=== PATIENT | female | born 1950 | race Caucasian/White ===

== ENCOUNTER → 2017-10-21 | Outpatient (CLI) | payer OTHER ==
[2017-10-23 14:24] LABS: MICROSOMAL AB 3 IU/ML (<9)
== END | disposition home or self-care (01) ==
LOC: C.LAB1850 13:11
PROVIDERS: ATTEND Internal Medicine Endocrinology, Diabetes & Metabolism
DX: M79.1 Myalgia (principal); E03.9 Hypothyroidism, unspecified; R53.83 Other fatigue

== ENCOUNTER 2018-08-31 06:16 | Inpatient (IN) ==
--- NOTE | 2018-08-05 12:48 | PAT Medication Instructions ---
Medication Instructions Date of Service August 05, 2018 Home Medications acetaminophen 1,000 mg PO Q6H NEEDED alprazolam [Xanax] 0.25 mg PO HS aspirin 81 mg PO QAM atorvastatin 10 mg PO QPM cholecalciferol (vitamin D3) 1,000 unit PO QAM cyanocobalamin (vitamin B-12) 100 mcg PO QAM diltiazem HCl 120 mg PO HS duloxetine 30 mg PO QAM duloxetine [Cymbalta] 60 mg PO QAM etodolac 500 mg PO BID gabapentin 300 mg PO QPM levothyroxine 100 mcg PO QAM loperamide [Imodium A-D] 2 mg PO Q3H NEEDED pantoprazole 40 mg PO QAM tramadol 1 - 2 tab PO Q8H NEEDED ASK your surgeon for instructions etodolac 500 mg PO BID ASK your prescriber and surgeon aspirin 81 mg PO QAM DO NOT take the morning of surgery cholecalciferol (vitamin D3) 1,000 unit PO QAM cyanocobalamin (vitamin B-12) 100 mcg PO QAM Take morning of surgery With a small sip of water, OTHERWISE NOTHING TO EAT OR DRINK AFTER MIDNIGHT: acetaminophen 1,000 mg PO Q6H NEEDED duloxetine 30 mg PO QAM duloxetine [Cymbalta] 60 mg PO QAM levothyroxine 100 mcg PO QAM pantoprazole 40 mg PO QAM tramadol 1 - 2 tab PO Q8H NEEDED (stop 4 hours before surgery) loperamide [Imodium A-D] 2 mg PO Q3H NEEDED Take evening before surgery acetaminophen 1,000 mg PO Q6H NEEDED alprazolam [Xanax] 0.25 mg PO HS atorvastatin 10 mg PO QPM diltiazem HCl 120 mg PO HS gabapentin 300 mg PO QPM tramadol 1 - 2 tab PO Q8H NEEDED loperamide [Imodium A-D] 2 mg PO Q3H NEEDED Other Notes If you have any questions please call us at [phone] or [phone] or [phone] or [phone]
--- NOTE | 2018-08-05 13:47 | Anesthesiology Consultation ---
Date of Service August 05, 2018 Assessment & Plan (1) Encounter for pre-operative examination: Chart Review Chart Review: Acceptable Risk for Surgery and Patient seen in Pre Admission Testing Consults Requested none Teaching & Discussion Pre-Anesthesia Teaching/Discussion Notes: Instructed NPO after midnight before surgery, except medications with 15 cc of water. Medication instructions provided according to the PAT guidelines. History Surgery Operation Date: 08/31/18 07:00 Proposed Procedures p Left Total Hip Arthroplasty - Olegario Nugent MD Height/Weight Height: 6 ft Weight: 102.2 kg Allergies Allergy/AdvReac Type Severity Reaction Status Date / Time No Known Allergies Allergy Verified 07/30/18 13:58 Medications Home Medications Medication Instructions Recorded Confirmed Last Taken acetaminophen 1,000 mg PO Q6H PRN 07/30/18 07/30/18 Unknown alprazolam [Xanax] 0.25 mg PO HS 07/30/18 07/30/18 Unknown aspirin 81 mg PO QAM 07/30/18 07/30/18 Unknown atorvastatin 10 mg PO QPM 07/30/18 07/30/18 Unknown cholecalciferol (vitamin D3) 1,000 unit PO QAM 07/30/18 07/30/18 Unknown [Vitamin D3] cyanocobalamin (vitamin B-12) 100 mcg PO QAM 07/30/18 07/30/18 Unknown [Vitamin B-12] diltiazem HCl 120 mg PO HS 07/30/18 07/30/18 Unknown duloxetine 30 mg PO QAM 07/30/18 07/30/18 Unknown duloxetine [Cymbalta] 60 mg PO QAM 07/30/18 07/30/18 Unknown etodolac 500 mg PO BID 07/30/18 07/30/18 Unknown gabapentin 300 mg PO QPM 07/30/18 07/30/18 Unknown levothyroxine 100 mcg PO QAM 07/30/18 07/30/18 Unknown loperamide [Imodium A-D] 2 mg PO Q3H PRN 07/30/18 07/30/18 Unknown pantoprazole 40 mg PO QAM 07/30/18 07/30/18 Unknown tramadol 1 - 2 tab PO Q8H PRN 07/30/18 07/30/18 Unknown Past Medical History Medical History Anxiety Chronic back pain Degenerative disc disease Depression GERD (gastroesophageal reflux disease) Hyperlipidemia Hypoglycemia Hypothyroidism Osteoarthritis PVC (premature ventricular contraction) Scoliosis Spinal stenosis Past Surgical History Surgical History History of cataract surgery LEFT History of detached retina repair LEFT History of esophageal dilatation 1975 History of esophagogastroduodenoscopy (EGD) History of surgery on arm LEFT; A CHILD History of tooth extraction History of total hip arthroplasty RT History of total shoulder replacement BL Past Anesthesia History No Hx of Anesthesia Complications and No Family Hx of Anesthesia Complications History of PONV No Motion Sickness Screening History of Motion Sickness: No Social History Smoking Status: Former smoker Smoking cigarettes per day: Smoked ~1ppd x 10 years Do You Dip or Chew Tobacco: No Smoking End Date: QUIT 1976 Hx Alcohol Use: No Hx Substance Use: No substance use type: does not use Exercise / Class Metabolic Activity III < 4 Walking/Shop/Light housework (Very limited due to hip/knee pain. Not able to do stairs currently due to pain. Denies CP. Does complain of SOB when the pain gets bad. ) Review of Systems Patient denies chest pain, reflux, cough, wheezing, palpitations. +SOB/BAKER (when pain is bad) +joint pain (left hip and knee) Physical Exam Vital Signs BP: 114/77 P: 70 R: 16 T: 98.6 SPO2: 97% on RA ENMT Thyromental Distance: < 3.5 Finger Breadths (3) Mallampati Class: II Neck normal visual inspection and trachea midline; neck extension not limited Respiratory normal respiratory effort Auscultation: lungs clear to auscultation bilaterally Cardiovascular Rate/Rhythm: regular rate and regular rhythm Heart Sounds: no murmur Vessels: no carotid bruit Psychiatric Orientation: alert and oriented x 3 Testing Electrocardiogram Date: 11/24/17 Findings: + NSR @ (67) High QRS voltage may be normal variant or due LVE. Nonspecific ST abnormality. When compared with ECG of 03/27/17, PVCs are no longer present. Chest X-Ray Date: 08/05/18 Findings: + NAD FINDINGS: No pneumothorax. No pleural effusions. The lungs are clear. The heart is normal in size. Old, healed left fifth rib fracture. Bilateral total shoulder arthroplasties are noted. Dilated gas and fluid-filled structure within the mediastinum. A left gastric bubble was not identified. Therefore, this favors a gastric pull-up rather than a distended esophagus. IMPRESSION: 1. No acute process within the chest. 2. Dilated gas and fluid-filled structure within the mediastinum. A left gastric bubble was not identified. Therefore, this favors a gastric pull-up rather than a distended esophagus. Clinical correlation recommended. If there is no postoperative history, then a follow-up upper GI series is recommended for further evaluation. Echocardiogram Date: 11/20/16 EF: 64% LV Function: normal RWMA: + none Valvular Disease: + no significant valvular disease Mild aortic valve sclerosis, without stenosis, is present. Mild tricuspid regurgitation is present. Stress Test Date: 04/20/17 Type: nuclear Resting EF: >70% Resting EKG: Sinus bradycardia; PVC's Stress EKG: NSR; No significant ST segment changes noted at peak. Stress: Normal BP and HR. Post stress perfusion is normal. Conclusion: Stress test is negative for ischemia. Laboratory Results 08/05/18 14:05 08/05/18 14:05 Blood Type A Negative 08/05/18 14:05 Antibody Screen NEGATIVE 08/05/18 14:05 PT 10.5 Seconds (9.0-12.0) 08/05/18 14:05 INR 1.0 (0.9-1.1) 08/05/18 14:05 APTT 27.7 Seconds (21.0-31.0) 08/05/18 14:05
[2018-08-05 14:39] LABS: Basophils # (auto) 0.03 K/uL (0-0.2); Basophils % (auto) 0.8 %; Eosinophils # (auto) 0.06 K/uL (0-0.5); Eosinophils % (auto) 1.7 %; Hematocrit (blood only) 40.5 % (37-47); Hemoglobin 13.3 g/dL (12.0-16.0); Immature Granulocytes # (auto) 0.01 K/uL (0.00-0.02); Immature Granulocytes % (auto) 0.3 %; Lymphocytes # (auto) 0.66 K/uL (1.2-3.4); Lymphocytes % (auto) 18.2 %; Mean Corpuscular Hgb Conc 32.8 g/dL (32-36); Mean Platelet Volume 10.8 fL (7.4-10.4); Monocytes % (auto) 13.8 %; Neutrophils # (auto) 2.37 K/uL (1.4-6.5); Neutrophils % (auto) 65.2 %; Platelet Count 149 K/uL (130-400); RDW Standard Deviation 50.5 fL (36.4-46.3); Red Blood Count 4.09 M/uL (4.2-5.4); White Blood Count 3.63 K/uL (4.8-10.8)
--- NOTE | 2018-08-05 14:50 | XRay Report ---
XR chest Pre-admission PA/Lat HISTORY: Preop. COMPARISON: None. FINDINGS: No pneumothorax. No pleural effusions. The lungs are clear. The heart is normal in size. Ol d, healed left fifth rib fracture. Bilateral total shoulder arthroplasties are noted. Dilated gas and fluid-filled structure within the mediastinum. A left gastric bubble was not identified. Therefore, this favors a gastric pull-up rather than a distended esophagus. IMPRESSION: 1. No acute process within the chest. 2. Dilated gas and fluid-filled structure within the mediastinum. A left gastric bubble was not ident ified. Therefore, this favors a gastric pull-up rather than a distended esophagus. Clinical correlati on recommended. If there is no postoperative history, then a follow-up upper GI series is recommended for further evaluation. Electronically signed by: Indra Medrano M.D. 08/05/2018 2:48 PM
[2018-08-05 14:51] LABS: Partial Thromboplastin Ratio 1.1; Partial Thromboplastin Time 27.7 Seconds (21.0-31.0); Prothrombin Time 10.5 Seconds (9.0-12.0)
[2018-08-05 15:25] LABS: BUN Creatinine Ratio 29.4 (10-20); Creatinine Clr Calc Pharmacy 98.7 ml/min; Est GFR (African American) 98.1; Est GFR (Non-African American) 84.6; Potassium 4.1 mmol/L (3.5-5.1)
--- NOTE | 2018-08-28 12:34 | History and Physical Report ---
DATE OF ADMISSION: 08/31/2018 CHIEF COMPLAINT: Left hip pain and discomfort. HISTORY OF PRESENT ILLNESS: The patient is a 68-year-old female who presents for surgical treatment of her left hip. She has about a 2-year history of increasing left pain and discomfort that has gotten to the point where she is using a cane and even a walker to get around for the past 6 months. She does have a history of right hip replacement done by Dr. Shields about 4 years ago. She actually went back to see him, but he told her he was retiring and she is to go elsewhere. She is disabled by the pain. She describes the groin pain and knee pain. She limps with every step. She cannot really walk independently due to the pain. She is taking anti-inflammatories without much relief. She has been to pain clinic as well without any relief. She would now like to present for surgical treatment. PAST MEDICAL HISTORY: 1. PVCs. 2. Hypothyroidism. 3. Gastroesophageal reflux disease. 4. Elevated cholesterol. 5. Low back pain/sciatica. PAST SURGICAL HISTORY: Previous surgeries include: 1. Right shoulder surgery. 2. Left shoulder surgery. 3. Esophageal surgery. 4. Right hip replacement done [address] Shields. ALLERGIES: None. CURRENT MEDICINES: Include: 1. Hydrocodone/Tylenol 1 tablet 3 times a day for pain. 2. Cymbalta 30 mg. 3. Alprazolam 0.25 mg as needed. 4. Atorvastatin 10 mg a day. 5. Pantoprazole 40 mg a day. 6. Diltiazem CD 120 mg once a day. 7. Gabapentin 300 mg before bedtime. 8. Etodolac 1 tablet twice a day. 9. Duloxetine 60 mg a day. 10. Tylenol. 11. Levothyroxine 88 mcg a day. 12. Vitamin B12. 13. Aspirin 81 mg. 14. Vitamin D. 15. Loperamide 2 mg as needed for diarrhea. SOCIAL HISTORY: A 67-year-old white female. She is single. Lives by herself, but has some family lives close by. Does not drink. No significant smoking history. FAMILY HISTORY: Significant for heart disease and COPD. REVIEW OF SYSTEMS: Significant for arthritis. She denies any chest pain or shortness of breath. No history of DVT or PE. No known bleeding problems. PHYSICAL EXAMINATION: GENERAL: Reveals a pleasant elderly female. Looks to be in pretty good health. HEENT: Benign. NECK: Supple. No lymphadenopathy. LUNGS: Clear to auscultation. HEART: Regular rate and rhythm. ABDOMEN: Soft, nontender, nondistended. EXTREMITIES: Grossly neurovascularly intact except as follows: Examination of the left hip reveals the patient walks using a walker. She really cannot even walk independently. She walks with a significantly antalgic gait. She is about a centimeter short on the left side compared to the right. She has pain and stiffness with any type of hip motion. She has got valgus alignment to her knee. Minimal knee effusion. X-RAYS: X-rays of the left hip revealed advanced left hip DJD. It looks to be inflammatory in nature with diffuse osteopenia. She does have a right hip replacement in place. She has complete loss of the joint space. X-rays of the left knee revealed fairly advanced lateral compartment DJD. ASSESSMENT: A 68-year-old white female with advanced left hip arthritis. She has some moderate knee arthritis as well, but I think it is limiting her most. She has failed conservative treatment and would like to have her left hip replaced. PLAN: We are going to take her to the operating room and do a left total hip replacement. The risks and benefits of this procedure were explained to the patient including but not limited to DVT, PE, , infection, neurological injury, neurovascular, bleeding problem, pain, limited range of motion, stiffness, failure to relieve symptoms, incomplete relief of symptoms, fracture, leg length inequality, nerve palsy, etc. The patient understands and desires. Informed consent was obtained. The patient does have some degree of scoliosis and pelvic obliquity which are making the leg lengths equal a little bit difficult. I told her we do the best we could. The patient lives by herself, but has family lives close by. She is hoping to be discharged to home with home health. She [facility] to a [facility] facility [facility] time, but did not really feel it was necessary.
[~2018-08-31 06:16] MED LIST: ACETAMINOPHEN 500 MG TAB PO SCH; CEFAZOLIN 2000MG 2,000 MG/15 ML SYR IV SCH; FAMOTIDINE 20 MG TAB PO SCH; GABAPENTIN 300 MG PO SCH; LR 60ML/HR IV SCH; METOCLOPRAMIDE HCL 10 MG TABLET PO SCH; SCOPOLAMINE 1.5 MG TDSY TD SCH; TRANEXAMIC ACID 1,000 MG **IV Pre-op IV SCH
[2018-08-31] MEDS ORDERED: BUPIVACAINE 0.5 % 5 MG/1 ML PF 10ML VIAL ONE (06:23)
--- NOTE | 2018-08-31 06:51 | History & Physical Bridge Note ---
Date of Service August 31, 2018 History & Physical Bridge Note I have examined the patient, reviewed the History & Physical and in the interval since the performance of the History & Physical I have noted the following changes of clinical significance: no changes noted
[2018-08-31] MEDS: LR 500ML BOLUS, THEN 15ML/HR IV SCH ×3 (06:53→12:14)
[2018-08-31] MEDS ORDERED: PROPOFOL IV EMULSION 10 MG/ML 20 ML VIAL IV ONE (08:14)
[2018-08-31] MEDS ORDERED: LIDOCAINE HCL 2% 2 ML VIAL/AMP(20MG/ML) INFIL ONE (08:14)
[2018-08-31] MEDS ORDERED: MIDAZOLAM HCL 1 MG/ML 2ML VIAL ONE (08:15)
[2018-08-31] MEDS ORDERED: fentaNYL citrate 100 MCG/2 ML VIAL ONE (08:15)
[2018-08-31] MEDS ORDERED: BUPIVACAINE/EPINEPHRINE 0.5% MPF 1:200,000 30 ML VIAL ONE (08:42)
[2018-08-31] MEDS ORDERED: BACITRACIN INJ 50,000 UNIT VIAL ONE (08:42)
[2018-08-31] MEDS ORDERED: MoRPHine SULFATE PF 1 MG/ML 10 ML AMP/VIAL ONE (08:52)
[2018-08-31] MEDS ORDERED: MoRPHine SULFATE PF 1 MG/ML 10 ML AMP/VIAL INT SPINAL ONE (09:06)
[2018-08-31] MEDS ORDERED: NALBUPHINE HCL INJ 10 MG/ML AMP IV PRN (09:06)
[2018-08-31] MEDS ORDERED: NALOXONE HCL 1 MG in SODIUM CHLORIDE 0.9% 1000ML 1,000 ML IV PRN (09:06)
[2018-08-31] MEDS ORDERED: LACTATED RINGER'S 500 ML IV PRN (09:06)
[2018-08-31] MEDS ORDERED: NALOXONE HCL 0.4 MG/1 ML VIAL/CARP IV PRN (09:06)
[2018-08-31] MEDS ORDERED: ePHEDrine sulfate 50 MG/ML AMP IV PRN (09:06)
[2018-08-31] MEDS ORDERED: NALOXONE HCL 0.08 MG in SYRINGE 1.8 ML IV PRN (09:06)
[2018-08-31] MEDS ORDERED: DiphenhydrAMINE HCL 50 MG/ML VIAL IV PRN (09:06)
[2018-08-31] MEDS ORDERED: NO NARCOTICS OR SEDATIVES SCH (09:15)
[2018-08-31] MEDS ORDERED: DC INTRASPINAL MORPHINE SCH (09:15)
[2018-08-31] MEDS ORDERED: SODIUM CHLORIDE 0.9% 1000ML 1,000 ML IV SCH (09:15)
[2018-08-31] MEDS ORDERED: KETOROLAC 30 MG/ML VIAL IV PRN (09:24)
[2018-08-31] MEDS ORDERED: MoRPHine SULFATE 4 MG/ML 1 ML CARP\\VIAL IV PRN (09:24)
[2018-08-31] MEDS ORDERED: MEPERIDINE HCL 25 MG/ML CARP IV PRN (09:24)
[2018-08-31] MEDS ORDERED: HYDROmorphone INJ 0.5 MG/0.5 ML SYR IV PRN (09:24)
[2018-08-31] MEDS ORDERED: ONDANSETRON INJ 2 MG/ML 2 ML VIAL IV PRN (09:24)
[2018-08-31] MEDS ORDERED: PHENYLEPHRINE 100MCG/ML 5ML SYR ONE (10:09)
[2018-08-31] MEDS ORDERED: ePHEDrine sulfate 50 MG/ML SYR ONE (10:09)
--- NOTE | 2018-08-31 10:46 | Post Operative Brief Note ---
Immediate Post Op Note v1 Date of Surgery August 31, 2018 Pre & Post Diagnosis Operation Date: 08/31/18 08:50 Left Hip DJD Procedure Operation Date: 08/31/18 08:50 Left Hip Arthroplasty - Uncemented. Surgeon Olegario Nugent MD Store Receiver Neel, PAC Estimated Blood Loss 300 Findings Consistent with Post-Op Diagnosis Fluids 800 cc Specimens Left Femoral Head Drains Garcia Catheter Anesthesia Type Spinal MAC Complications none Disposition Accompanied Patient To Recovery: Yes Disposition: Recovery Room
--- NOTE | 2018-08-31 11:20 | XRay Report ---
XR hip 1V LT w pelvis CLINICAL HISTORY: IN PACU - A/P PELVIS and LATERAL HIP pain COMPARISON: None. DISCUSSION: Anatomic alignment post total left hip arthroplasty. Expected soft tissue postoperative c hange. Pre-existing total right hip arthroplasty. IMPRESSION: Anatomic alignment post total left hip arthroplasty. The above report was generated using voice recognition software. It may contain grammatical, syntax or spelling errors. Electronically signed by: Josias Haro M.D. 08/31/2018 11:18 AM
--- NOTE | 2018-08-31 11:39 | Anesthesiology Progress Note ---
Date of Service August 31, 2018 Anesthesia Post Procedure Vital Signs Vital Signs: Temp Pulse Pulse Resp BP Pulse Ox 08/31/18 11:15 36.6 C 69 14 122/70 99 08/31/18 11:05 84 16 128/84 99 08/31/18 10:55 73 16 123/70 100 08/31/18 10:46 36.9 C 84 16 116/68 95 08/31/18 07:00 36.8 C 75 20 110/72 96 Pain Intensity Left Hip: Pain Intensity: 6 Notes Mental Status: alert / awake / arousable and participated in evaluation Patient Amnestic to Procedure: Yes Nausea / Vomiting: adequately controlled Pain: adequately controlled Airway Patency, RR, SpO2: stable & adequate BP & HR: stable & adequate Hydration State: stable & adequate Neuraxial Anesthesia: was administered and sensory block is resolving Anesthetic Complications: no major complications apparent
[2018-08-31] MEDS ORDERED: LOPERAMIDE HCL 2 MG CAP PO PRN (11:49)
[2018-08-31] MEDS ORDERED: METOCLOPRAMIDE HCL INJ 5 MG/ML 2 ML VIAL IV PRN (11:49)
[2018-08-31] MEDS ORDERED: MAGNESIUM HYDROXIDE SUSP 30 ML UDC PO PRN (11:49)
[2018-08-31] MEDS ORDERED: BISACODYL 10 MG SUPP PR PRN (11:49)
[2018-08-31] MEDS ORDERED: ALUMINUM/MAGNESIUM SUSP 30 ML UDC PO PRN (11:49)
--- NOTE | 2018-08-31 12:41 | Operative Report ---
DATE OF OPERATION: 08/31/2018 SURGEON: Olegario Nugent MD STRIP POLISHER: TETE Adam PREOPERATIVE DIAGNOSIS: Left hip degenerative joint disease. POSTOPERATIVE DIAGNOSIS: Left hip degenerative joint disease. PROCEDURE PERFORMED: Left uncemented ceramic on highly cross-linked polyethylene total hip arthroplasty. COMPLICATIONS: None. ESTIMATED BLOOD LOSS: 300 mL. FLUID REPLACEMENT: 800 mL crystalloid fluid replacement. ANESTHESIA: Spinal. DRAINS: None. SPECIMENS: Left femoral head sent for pathology. OPERATIVE INDICATIONS: The patient is a 68-year-old female who underwent a right total hip replacement several years ago done elsewhere. She has done well from that side. Over the past year, in particularly over the past 6 months, she has developed markedly debilitating pain and discomfort in her left hip. X-ray showed advanced hip arthritis consistent with inflammatory arthritis. The patient elected to proceed with operative treatment. She was having trouble even getting around and living independently as a result of her pain. OPERATIVE FINDINGS: Operative findings revealed advanced left hip DJD. Extensive grade 4 [id number] disease with an inflammatory pattern with cystic change of the femoral head and acetabulum. She had significant synovitis. Moderate-sized joint effusion. Pretty significant anterior osteophytes and a little bit of posterior wall deficiency. OPERATIVE IMPLANTS: Operative implants consisted of: 1. A Biomet G7 size 54 mm acetabular shell. 2. An apex hole eliminator. 3. 6.5 cancellous acetabular screws, 1 at 35 mm length and 1 at 20 mm length. 4. A Biomet highly cross-linked polyethylene liner with a 54 mm outer diameter, 36 mm inner diameter with high wall placed inferior and posterior. 5. A DePuy size 14 KLA Corail femoral stem. 6. A +5/36 mm ceramic articular ball. OPERATIVE PROCEDURE: The patient was taken to the operating room, identified and placed on the operating table in supine position. All contact areas were appropriately padded. IV antibiotics were provided by anesthesia team. A spinal anesthetic had been implemented in the holding area. A Garcia catheter was placed in sterile fashion. The patient was then placed in the right lateral decubitus position. An axillary roll was placed. [facility] hip positioner was used for positioning. The left hip and leg were then prepped and draped in usual sterile fashion. A posterolateral approach to the left hip was then performed through a curvilinear incision centered over the greater trochanter. Sharp dissection was carried out through subcutaneous tissue down to the level of the IT band and gluteal fascia. The IT band and gluteal fascia were then incised longitudinally in line with skin incision. The underlying greater trochanteric bursa was excised. The piriformis and external rotators were tagged and taken off the posterior aspect of the hip joint capsule. Great care was taken throughout the procedure to protect the sciatic nerve at all times. Posterior capsulotomy was then performed leaving a large flap for later repair. Hip was internally rotated and dislocated. Femoral neck osteotomy cut was made with the final cut about a cm above the lesser trochanter. Femoral head was removed and sent for pathology. The femur was retracted anteriorly. Attention was then drawn to the acetabulum. The acetabular labrum was excised. The pulvinar fat was excised. Sequential reaming of the acetabulum was then performed beginning with a size 45 and progressing up to a 53. A 54 mm Biomet G7 acetabular shell was then placed in about 40 degrees of lateral opening and 20 degrees of anteversion. It was fixed with two 6.5 cancellous acetabular screws. Large anterior osteophyte was removed. A trial liner was placed. Attention was then drawn to the femur. The proximal femur was entered with a cookie cutter followed by canal finder. I then broached beginning with a size 8 and progressing up to 14. We got good fit at a 14. The calcar reamer was used to smoothen off the calcar. I then trialed the hip and hip was stable with full extension and external rotation, flexion to 90 degrees, internal rotation to about [address] a high wall liner inferior and posterior to maximize stability in flexion. Leg lengths appeared equal. We elected to place these implants. All trial implants were removed. An apex hole eliminator was placed. Highly cross-linked polyethylene liner with a high wall placed inferior and posterior was then placed. A DePuy Corail size 14 KLA femoral stem was impacted in position. A +5/36 mm ceramic articular ball was placed. Hip was located and once again found to be stable. Attention was then drawn toward closing. I injected locally with 60 mL of 0.5% Marcaine with epinephrine. I irrigated the wound extensively. The posterior capsule and external rotators were then repaired through drill holes in the posterior trochanter with #2 Ti-Cron suture. The IT band and gluteal fascia were then closed with #1 PDS suture in running fashion. The subcutaneous tissue was then closed with 2 layers, the deep layer #2 Vicryl suture in buried interrupted fashion, the subcutaneous tissue with 2-0 Dexon suture in a buried interrupted fashion. The skin was then closed with skin luis alfredo. Leg was then cleaned and dried and a sterile dressing of Xeroform, 4 x 4's, ABD pad and foam tape was applied. The patient then transferred to the recovery room in stable condition. The patient tolerated the procedure well with no complication. All needle and sponge counts were correct at the end of the operation. I attest to the content of the Intraoperative Record and any orders documented therein. Any exception s are noted below.
[2018-08-31] MEDS: CEFAZOLIN 2000MG 2,000 MG/15 ML SYR IV SCH (16:00)
[2018-08-31] MEDS: ACETAMINOPHEN 500 MG TAB PO SCH (16:01)
[2018-08-31] MEDS: CHECK SCOPOLAMINE PATCH PLACEMENT SCH (16:02)
[2018-08-31] MEDS ORDERED: TRANEXAMIC ACID 1,000 MG in 0.9 % SODIUM CHLORIDE 100 ML IV SCH (16:47)
[2018-08-31] MEDS: ASCORBIC ACID 500 MG TAB PO SCH (16:59)
[2018-08-31] MEDS: FERROUS GLUCONATE 324 MG TAB PO SCH (16:59)
[2018-08-31] MEDS: SODIUM CHLORIDE 0.9% 1000ML 1,000 ML IV SCH (17:09)
[2018-08-31] MEDS: GABAPENTIN 300 MG CAP PO SCH (20:26)
[2018-08-31] MEDS: ASPIRIN 81 MG ECTAB PO SCH (20:26)
[2018-08-31] MEDS: SENNA 8.6 MG TAB PO SCH (20:27)
[2018-08-31] MEDS: ATORVASTATIN 10 MG TAB PO SCH (20:27)
[2018-08-31] MEDS: DOCUSATE SODIUM 100 MG CAP PO SCH (20:27)
[2018-08-31] MEDS: dilTIAZem ER 120 MG CAPCR PO SCH (20:28)
[2018-09-01] MEDS: CHECK SCOPOLAMINE PATCH PLACEMENT SCH ×3 (00:22→15:57)
[2018-09-01] MEDS: CEFAZOLIN 2000MG 2,000 MG/15 ML SYR IV SCH (00:22)
[2018-09-01] MEDS: ACETAMINOPHEN 500 MG TAB PO SCH ×3 (00:22→15:58)
[2018-09-01] MEDS ORDERED: TRAMADOL HCL 50 MG TABLET PO PRN (03:07)
[2018-09-01] MEDS ORDERED: ONDANSETRON INJ 2 MG/ML 2 ML VIAL IV PRN (03:07)
[2018-09-01] MEDS ORDERED: NALOXONE HCL 0.4 MG/1 ML VIAL/CARP IV PRN (03:07)
[2018-09-01] MEDS ORDERED: HYDROmorphone INJ 0.5 MG/0.5 ML SYR IV PRN (03:07)
[2018-09-01] MEDS: SODIUM CHLORIDE 0.9% 1000ML 1,000 ML IV SCH (04:38)
[2018-09-01 05:46] LABS: Basophils # (auto) 0.03 K/uL (0-0.2); Basophils % (auto) 0.4 %; Eosinophils # (auto) 0.02 K/uL (0-0.5); Eosinophils % (auto) 0.3 %; Hematocrit (blood only) 34.1 % (37-47); Hemoglobin 11.4 g/dL (12.0-16.0); Immature Granulocytes # (auto) 0.01 K/uL (0.00-0.02); Immature Granulocytes % (auto) 0.1 %; Lymphocytes # (auto) 0.53 K/uL (1.2-3.4); Lymphocytes % (auto) 7.3 %; Mean Corpuscular Hgb Conc 33.4 g/dL (32-36); Mean Corpuscular Volume 98.6 fL (80-100); Mean Platelet Volume 10.6 fL (7.4-10.4); Monocytes % (auto) 15.2 %; Neutrophils # (auto) 5.55 K/uL (1.4-6.5); Neutrophils % (auto) 76.7 %; Platelet Count 134 K/uL (130-400); RDW Coefficient of Variation 14.2 % (11.5-14.5); RDW Standard Deviation 51.3 fL (36.4-46.3); Red Blood Count 3.46 M/uL (4.2-5.4); White Blood Count 7.24 K/uL (4.8-10.8)
[2018-09-01] MEDS: KETOROLAC TROMETHAMINE 15 MG/ML VIAL IV SCH ×3 (06:07→17:53)
[2018-09-01] MEDS: LEVOTHYROXINE SODIUM 100 MCG TABLET PO SCH (06:08)
[2018-09-01 06:14] LABS: BUN Creatinine Ratio 22.8 (10-20); Calcium 8.2 mg/dl (8.5-10.1); Creatinine Clr Calc Pharmacy 96.2 ml/min; Est GFR (African American) 97.4; Potassium 3.7 mmol/L (3.5-5.1)
[2018-09-01] MEDS: DOCUSATE SODIUM 100 MG CAP PO SCH ×2 (08:56→20:15)
[2018-09-01] MEDS: MULTIVITAMIN TAB PO SCH (08:56)
[2018-09-01] MEDS: CHOLECALCIFEROL 1,000 UNITS TAB PO SCH (08:56)
[2018-09-01] MEDS: DULOXETINE HCL 60 MG CAP PO SCH (08:56)
[2018-09-01] MEDS: DULOXETINE HCL 30 MG CAP PO SCH (08:56)
[2018-09-01] MEDS: ASPIRIN 81 MG ECTAB PO SCH ×2 (08:56→20:12)
[2018-09-01] MEDS: FERROUS GLUCONATE 324 MG TAB PO SCH ×2 (08:57→17:53)
[2018-09-01] MEDS: CYANOCOBALAMIN (VITAMIN B-12) 100 MCG TABLET PO SCH (08:57)
[2018-09-01] MEDS: ASCORBIC ACID 500 MG TAB PO SCH ×2 (08:57→17:55)
[2018-09-01] MEDS: PANTOprazole 40 MG TAB PO SCH (08:57)
--- NOTE | 2018-09-01 10:07 | Progress Note ---
DATE: 09/01/2018 SUBJECTIVE: A 68-year-old white female postop day 1 from a left hip replacement. She is doing pretty well. Having some pain. No chest pain or shortness of breath. Not feeling dizzy or lightheaded. OBJECTIVE: VITAL SIGNS: Temperature 37.6. Vital signs stable. GENERAL: Physical examination reveals a pleasant 68-year-old white female. She is sitting up in bed, looks pretty comfortable. EXTREMITIES: Examination of the left hip and leg reveals the dressing to be clean, dry and intact. Leg lengths were equal. Hip is located. She can dorsiflex and plantarflex her foot appropriately. She is neurologically intact. LABORATORY DATA: Hemoglobin 11.4. Hematocrit 34.1. Electrolytes are stable. ASSESSMENT: A 68-year-old white female postop day 1 from a left hip replacement, doing pretty well. Pain is controlled. Hip is located. She is neurologically intact. PLAN: 1. DVT prophylaxis including thigh-high TEDs, SCDs, and aspirin twice a day. 2. PT/OT. Weightbear as tolerated. Left total hip protocol. 3. Pain control, doing pretty well with current pain regimen. 4. Disposition: She is planning to be discharged to home with some home health. She apparently has some help around. We will see how she does in therapy the next 24 hours.
[2018-09-01] MEDS: SENNA 8.6 MG TAB PO SCH ×2 (20:12→20:17)
[2018-09-01] MEDS: ATORVASTATIN 10 MG TAB PO SCH (20:14)
[2018-09-01] MEDS: GABAPENTIN 300 MG CAP PO SCH (20:15)
[2018-09-01] MEDS: dilTIAZem ER 120 MG CAPCR PO SCH (20:20)
[2018-09-01] MEDS ORDERED: ALPRAZolam 0.25 MG TABLET PO SCH (21:00)
[2018-09-01] MEDS: DEXAMETHASONE SOD PHOSPHATE 6 MG in SYRINGE 0 ML IV SCH (22:28)
[2018-09-02] MEDS: CHECK SCOPOLAMINE PATCH PLACEMENT SCH ×2 (00:11→07:45)
[2018-09-02] MEDS: ACETAMINOPHEN 500 MG TAB PO SCH ×2 (00:12→08:27)
[2018-09-02] MEDS: KETOROLAC TROMETHAMINE 15 MG/ML VIAL IV SCH ×3 (00:18→12:04)
[2018-09-02] MEDS: DEXAMETHASONE SOD PHOSPHATE 6 MG in SYRINGE 0 ML IV SCH (06:15)
[2018-09-02] MEDS: LEVOTHYROXINE SODIUM 100 MCG TABLET PO SCH (06:16)
--- NOTE | 2018-09-02 08:06 | Progress Note ---
DATE: 09/02/2018 SUBJECTIVE: A 68-year-old white female postop day 2 from a left hip replacement. She is doing pretty well. She denies any pain this morning. No chest pain or shortness of breath. Not feeling dizzy or lightheaded. She says she is ready to go home. OBJECTIVE: VITAL SIGNS: Temperature 36.7. Vital signs stable. GENERAL: Physical examination shows a pleasant elderly female. She seems pretty tired this morning when I visited with her. EXTREMITIES: Examination of the left hip reveals the incision to be clean, dry and intact. Thigh is soft and supple. Leg lengths are equal. Hip is located. She is neurologically intact. ASSESSMENT: A 68-year-old white female postop day 2 from a left hip replacement, doing pretty well. Pain is controlled. Hip is located. She is neurologically intact. PLAN: 1. DVT prophylaxis including thigh-high TEDs, SCDs, and aspirin twice a day. 2. PT/OT. Weightbear as tolerated. Left total hip protocol. 3. Pain control, doing well with current pain regimen. 4. Disposition: Plan to discharge to home with some home health once stable and recovered.
[2018-09-02] MEDS: DULOXETINE HCL 60 MG CAP PO SCH (08:26)
[2018-09-02] MEDS: ASCORBIC ACID 500 MG TAB PO SCH (08:26)
[2018-09-02] MEDS: DOCUSATE SODIUM 100 MG CAP PO SCH (08:26)
[2018-09-02] MEDS: CHOLECALCIFEROL 1,000 UNITS TAB PO SCH (08:26)
[2018-09-02] MEDS: FERROUS GLUCONATE 324 MG TAB PO SCH (08:26)
[2018-09-02] MEDS: PANTOprazole 40 MG TAB PO SCH (08:27)
[2018-09-02] MEDS: DULOXETINE HCL 30 MG CAP PO SCH (08:27)
[2018-09-02] MEDS: CYANOCOBALAMIN (VITAMIN B-12) 100 MCG TABLET PO SCH (08:27)
[2018-09-02] MEDS: MULTIVITAMIN TAB PO SCH (08:27)
[2018-09-02] MEDS: ASPIRIN 81 MG ECTAB PO SCH (08:27)
--- NOTE | 2018-09-03 16:21 | Discharge Summary ---
ADMITTING PHYSICIAN AND SURGEON: Olegario Nugent MD. ADMITTING DIAGNOSIS: Left hip degenerative joint disease. SURGERY PERFORMED: Left total hip arthroplasty. SECONDARY DIAGNOSES: Premature ventricular contractions, hypothyroidism, gastroesophageal reflux disease, elevated cholesterol, low back pain, sciatica. CONSULTS: None obtained. HISTORY AND PHYSICAL EXAMINATION: Well-documented in the patient's chart. HOSPITAL COURSE: The patient was admitted on 08/31/2018, underwent total hip arthroplasty, tolerated the procedure well. There were no complications. She was transferred to the PACU postoperatively and later to the orthopedic floor for further care. She was given Ancef for antibiotic prophylaxis, CARLEY stockings and SCDs and aspirin for DVT prophylaxis. Hemoglobin, hematocrit and vital signs were monitored during her hospital stay and remained stable. She developed some postoperative anemia, did not require any blood transfusions. There were no complications. By postoperative day 2, she was tolerating a regular diet, pain was controlled with oral pain medicine. She was participating in physical therapy. On postop day 2, she was discharged home, set up with home health services. She was given printed discharge instructions including new prescriptions for extra-strength Tylenol, aspirin, iron supplement and tramadol. Continue home medicines with the exception of her home doses of Tylenol and aspirin, which were changed. Continue physical therapy, weightbearing as tolerated, CARLEY stockings, total hip precautions. Follow up in approximately 2 weeks postoperatively or sooner if there are any problems or concerns.
== END 2018-09-02 13:55 | disposition home health service (06) | DRG 470 ==
LOC: ASU 06:16 → 3E 10:50